=== PATIENT | male | born 1975 | race Caucasian/White ===

== ENCOUNTER 2017-08-12 19:34 | Emergency (ER) | payer OTHER ==
[2017-08-12] MEDS ORDERED: SODIUM CHLORIDE 0.9% 1,000 ML IV ONE (19:57)
[2017-08-12 20:04] LABS: BASOPHILS # (AUTO) 0.1 10^3/uL (0.0-0.1); BASOPHILS % (AUTO) 1.1 %; EOSINOPHILS # (AUTO) 0.2 10^3/uL (0.0-0.7); EOSINOPHILS % (AUTO) 2.2 %; HCT - HEMATOCRIT 40.3 % (42.0-52.0); HGB - HEMOGLOBIN 13.8 g/dL (14.0-18.0); LYMPHOCYTES # (AUTO) 2.6 10^3/uL (1.5-3.5); LYMPHOCYTES % (AUTO) 27.9 %; MEAN CORPUSCULAR HEMOGLOBIN 34.2 pg (27.0-31.0); MEAN CORPUSCULAR HGB CONC 34.3 g/dL (32.0-36.0); MEAN CORPUSCULAR VOLUME 99.8 fL (80.0-94.0); MEAN PLATELET VOLUME 7.2 fL (7.4-11.4); MONOCYTES # (AUTO) 0.7 10^3/uL (0.0-1.0); MONOCYTES % (AUTO) 7.7 %; NEUTROPHILS # (AUTO) 5.8 10^3/uL (1.5-6.6); NEUTROPHILS % (AUTO) 61.1 %; RED BLOOD COUNT 4.03 10^6/uL (4.70-6.10); RED CELL DISTRIBUTION WIDTH 12.7 % (12.0-15.0); UNCORRECTED WHITE BLOOD COUNT 9.5 x10^3/uL; WHITE BLOOD COUNT 9.5 x10^3/uL (4.8-10.8)
[2017-08-12 20:18] LABS: ALBUMIN/GLOBULIN RATIO 1.2 (1.0-2.2); BILIRUBIN,TOTAL 0.4 mg/dL (0.2-1.0); BUN - BLOOD UREA NITROGEN 13 mg/dL (6-20); CALCIUM 9.1 mg/dL (8.5-10.3); CARBON DIOXIDE - CO2 27 mmol/L (21-32); CHLORIDE 104 mmol/L (101-111); CREATININE 0.9 mg/dL (0.6-1.2); GFR - MDRD 93 (>89); GLUCOSE 132 mg/dL (70-100); LIPASE 27 U/L (22-51); MAGNESIUM 1.7 mg/dL (1.7-2.8); PHOSPHORUS 4.3 mg/dL (2.5-4.6); POTASSIUM 3.7 mmol/L (3.5-5.0); SALICYLATE < 6.0 mg/dL; SODIUM 141 mmol/L (135-145); TOTAL PROTEIN 6.9 g/dL (6.7-8.2)
[2017-08-12 20:22] LABS: ACETAMINOPHEN < 10 ug/mL (10-30)
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
--- NOTE | 2017-08-12 20:52 | CT Preliminary Report ---
Exam: CT HEAD W/O IMPRESSION: Normal head CT. [facility] SITE ID: [id number]
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
[2017-08-12 21:09] LABS: BILIRUBIN,URINE NEGATIVE (NEGATIVE)
[2017-08-12 21:10] LABS: UA CHARGE (STRIP ONLY) YES; UR CULTURE IF IND NOT INDICATED
[2017-08-12] MEDS ORDERED: LORazepam 0.5 MG TABLET PO STA (21:31)
[2017-08-12] MEDS ORDERED: LORazepam 0.5 MG TABLET ONE (21:38)
[2017-08-12 21:46] VITALS: BP 130/85
[2017-08-12 21:46] LABS: THYROID STIMULATING HORMONE 4.18 uIU/mL (0.34-5.60)
== END 2017-08-12 21:46 | disposition home or self-care (01) ==
LOC: ED 19:34
DX: F44.9 Dissociative and conversion disorder, unspecified (principal); F32.9 Major depressive disorder, single episode, unspecified; F41.9 Anxiety disorder, unspecified; F10.20 Alcohol dependence, uncomplicated; F17.200 Nicotine dependence, unspecified, uncomplicated
CPT/HCPCS: 36415; 70450; 80053; 80306; 80307; 80320; 80329; 81003; 83690; 83735; 84100; 84439; 84443; 85025; 93005; 96360; 99284; A9270; 81001; 87086